=== PATIENT | male | born 1995 | race Caucasian/White ===

== ENCOUNTER 2018-08-05 13:32 | Emergency (ER) | payer OTHER ==
[~2018-08-05] VITALS: Ht 172.7 cm; Wt 74.8 kg
--- NOTE | 2018-08-05 14:04 | NUR ---
Patient discharged to home in stable conditon. Written and verbal after care instructions given. Patient verbalizes understanding of instructions. walked out of er with no distress noted
== END 2018-08-05 14:05 | disposition home or self-care (01) ==
LOC: ER 13:32
DX: L03.313 Cellulitis of chest wall (principal); F17.290 Nicotine dependence, other tobacco product, uncomplicated
CPT/HCPCS: A4663